=== PATIENT | male | born 1960 | race Caucasian/White ===

== ENCOUNTER 2019-05-17 12:17 | Outpatient (CLI) | payer OTHER ==
[~2019-05-17 12:17] MED LIST: REGADENOSON 0.4 MG/5 ML SYRINGE ONE
== END 2019-05-17 23:59 | disposition home or self-care (01) ==
LOC: CFH 12:17
PROVIDERS: ATTEND Registered Nurse
DX: R07.9 Chest pain, unspecified (principal); R06.02 Shortness of breath
CPT/HCPCS: 78452; 93017; 93306; A9502; J2785